=== PATIENT | female | born 1930 | race Caucasian/White ===

== ENCOUNTER → 2018-03-06 | Outpatient (CLI) | payer MEDICARE, OTHER ==
[~2018-03-06] MED LIST: ACE500 PO; ALLO-119 PO; ASPI-1441 PO; CEP500 PO; LOR5/325 PO; MELO-149 PO; MULT1CAP41 PO; NIA500 PO; OLME1TAB PO; OLME1TAB49 PO; PREG50CA48 PO
[2018-03-06 08:05] LABS: PLATELET COUNT, AUTOMATED 214 K/uL (150-450)
== END ==
LOC: LAB 07:46
PROVIDERS: ATTEND Nurse Practitioner Psychiatric/Mental Health
DX: M10.9 Gout, unspecified (principal); I10 Essential (primary) hypertension; E78.5 Hyperlipidemia, unspecified
CPT/HCPCS: 36415; 82040; 82247; 82310; 82374; 82435; 82465; 82565; 82947; 83718; 84075; 84132; 84155; 84295; 84443; 84450; 84460; 84478; 84520; 84550; 85025

== ENCOUNTER 2019-02-25 07:12 | Observation (INO) | payer MEDICARE, OTHER ==
[~2019-02-25] VITALS: Ht 167.6 cm; Wt 82.1 kg
--- NOTE | 2019-02-25 07:39 | ER Report ---
History and Physical Time Seen By MD: 07:20 Hx. of Stated Complaint: patient reports getting out of the shower and blood starting spurting out of the left lower leg. bleeding controlled with pressure dressing. patient does not take blood thinners HPI/ROS CHIEF COMPLAINT: Bleeding HISTORY OF PRESENT ILLNESS: Patient is an 88-year-old female comes emergency Department after getting out of the shower today she was drying herself off and she had ruptured varicosity of her left lower extremity with excessive amounts o f bleeding she is not on blood thinners. Patient does take an aspirin daily. Patient states the bleeding was excessive she noticed that there was some spurting to it under pressure at soaked many towels of the puddle on the floor she call 911 with a patient direct pressure was able to get hemostasis. Patient denies any trauma to the area then she may have bumped it while she was in shower. No additional complaints noted. Patient on arrival here is no chest pain shortness of breath nausea vomiting diarrhea fever or chills REVIEW OF SYSTEMS: Respiratory: No cough, no dyspnea. Cardiovascular: No chest pain, no palpitations. Gastrointestinal: No vomiting, no abdominal pain. Musculoskeletal: No back pain. Remainder of the 14 system rev: Yes Allergies: Coded Allergies: nitrofurantoin (Verified Allergy, Mild, HIVES, 12/09/07) Home Meds Active Scripts Allopurinol (ZYLOPRIM) 300 Mg Tablet, 1 TAB PO BID, #180 TAB 1 Refill Prov:MANUELITO QUICK MD 11/13/17 Reported Medications Olmesartan/Hydrochlorothiazide (Olmesartan-Hctz 20-12.5 mg Tab) 20 Mg-12.5 Mg Tablet, 1 TAB PO DAILY 02/23/18 Meloxicam (MOBIC) 7.5 Mg Tablet, 1 TAB PO BID 06/09/17 Pregabalin (LYRICA) 50 Mg Capsule, 1 CAP PO BID 06/09/17 Multivitamins W-Minerals (Multivitamin) 1 Cap Capsule, 1 CAP PO DAILY 12/09/07 Aspirin (Aspirin Ec) 81 Mg Tablet., 1 TAB PO DAILY 12/09/07 Reviewed Nurses Notes: Yes Old Medical Records Reviewed: Yes Smoking Status: Never Smoker Constitutional Vital Sign - Last 24 Hours 02/25/19 02/25/19 02/25/19 02/25/19 07:15 07:17 07:30 07:42 Temp 98.3 Pulse 73 58 Resp 16 B/P (MAP) 116/79 116/79 (91) 116/73 (87) Pulse Ox 91 88 O2 Delivery Room Air 02/25/19 02/25/19 02/25/19 02/25/19 07:57 08:04 08:12 08:15 Pulse 50 45 Resp 20 B/P (MAP) 85/33 (50) 94/42 (59) Pulse Ox 89 02/25/19 02/25/19 02/25/19 02/25/19 08:17 08:27 08:40 08:45 Pulse 46 44 46 Resp 23 17 18 B/P (MAP) 114/43 (66) Pulse Ox 95 96 97 O2 Flow Rate 2.0 02/25/19 02/25/19 02/25/19 08:50 08:55 09:00 Pulse 45 44 45 Resp 16 18 13 B/P (MAP) 116/51 (72) 124/52 (76) Pulse Ox 98 97 97 Physical Exam General Appearance: [The patient is alert, has no immediate need for airway protection and no current signs of toxicity.] [ ] Eyes: Pupils equal and round no injection. Respiratory: Chest is non tender, lungs are clear to auscultation. Cardiac: regular rate and rhythm [ ] Gastrointestinal: Abdomen is soft and non tender, no masses, bowel sounds normal. Musculoskeletal: Neck: Neck is supple and non tender. Extremities have full range of motion and are non tender. Skin: Left lower extremity examination does show a small punctate area where the actual bleeding was coming from and around a large amount of varicosities. Currently hemostasis has been obtained no active bleeding dry blood is been noted neurovascular intact otherwise unremarkable [ ] DIFFERENTIAL DIAGNOSIS: After history and physical exam differential diagnosis was considered for ruptured vein varicosity acute bleed Medical Decision Making Data Points Result Diagram: 02/25/19 0910 02/25/19 0745 Laboratory Hematology Test 02/25/19 07:45 02/25/19 09:10 Prothrombin Time 13.6 seconds (12.0-14.4) Prothromb Time International Ratio 1.04 Activated Partial Thromboplast Time 32 seconds (23-35) Sodium Level 139 mmol/L (137-145) Potassium Level 4.4 mmol/L (3.5-5.0) Chloride Level 104 mmol/L (98-107) Carbon Dioxide Level 26 mmol/L (22-31) Blood Urea Nitrogen 24 mg/dl (7-18) Creatinine 1.20 mg/dl (0.52-1.04) Glomerular Filtration Rate Calc 42.3 Random Glucose 111 mg/dl (75-110) Calcium Level 9.0 mg/dl (8.4-10.2) Total Bilirubin 0.6 mg/dl (0.2-1.3) Aspartate Amino Transf (AST/SGOT) 63 U/L (0-35) Alanine Aminotransferase (ALT/SGPT) 33 U/L (0-56) Alkaline Phosphatase 59 U/L (0-126) Troponin I < 0.012 ng/ml Total Protein 6.7 g/dl (6.3-8.2) Albumin 4.1 g/dl (3.5-5.0) Red Blood Count 4.26 M/uL (4.17-5.56) Mean Corpuscular Volume 89.1 fL (80.0-96.0) Mean Corpuscular Hemoglobin 29.8 pg (26.0-33.0) Mean Corpuscular Hemoglobin Concent 33.4 g/dL (32.0-36.0) Red Cell Distribution Width 13.3 % (11.5-14.5) Mean Platelet Volume 10.3 fL (7.2-11.1) Neutrophils (%) (Auto) 72.8 % (39.4-72.5) Lymphocytes (%) (Auto) 16.1 % (17.6-49.6) Monocytes (%) (Auto) 7.7 % (4.1-12.4) Eosinophils (%) (Auto) 2.5 % (0.4-6.7) Basophils (%) (Auto) 0.9 % (0.3-1.4) Nucleated RBC Relative Count (auto) 0.0 /100WBC Neutrophils # (Auto) 4.6 K/uL (2.0-7.4) Lymphocytes # (Auto) 1.0 K/uL (1.3-3.6) Monocytes # (Auto) 0.5 K/uL (0.3-1.0) Eosinophils # (Auto) 0.2 K/uL (0.0-0.5) Basophils # (Auto) 0.1 K/uL (0.0-0.1) Nucleated RBC Absolute Count (auto) 0.00 K/uL Chemistry Test 02/25/19 07:45 02/25/19 09:10 Prothrombin Time 13.6 seconds (12.0-14.4) Prothromb Time International Ratio 1.04 Activated Partial Thromboplast Time 32 seconds (23-35) Glomerular Filtration Rate Calc 42.3 Calcium Level 9.0 mg/dl (8.4-10.2) Total Bilirubin 0.6 mg/dl (0.2-1.3) Aspartate Amino Transf (AST/SGOT) 63 U/L (0-35) Alanine Aminotransferase (ALT/SGPT) 33 U/L (0-56) Alkaline Phosphatase 59 U/L (0-126) Troponin I < 0.012 ng/ml Total Protein 6.7 g/dl (6.3-8.2) Albumin 4.1 g/dl (3.5-5.0) White Blood Count 6.3 k/uL (4.5-11.0) Red Blood Count 4.26 M/uL (4.17-5.56) Hemoglobin 12.7 g/dL (12.0-16.0) Hematocrit 38.0 % (34.0-47.0) Mean Corpuscular Volume 89.1 fL (80.0-96.0) Mean Corpuscular Hemoglobin 29.8 pg (26.0-33.0) Mean Corpuscular Hemoglobin Concent 33.4 g/dL (32.0-36.0) Red Cell Distribution Width 13.3 % (11.5-14.5) Platelet Count 208 K/uL (150-450) Mean Platelet Volume 10.3 fL (7.2-11.1) Neutrophils (%) (Auto) 72.8 % (39.4-72.5) Lymphocytes (%) (Auto) 16.1 % (17.6-49.6) Monocytes (%) (Auto) 7.7 % (4.1-12.4) Eosinophils (%) (Auto) 2.5 % (0.4-6.7) Basophils (%) (Auto) 0.9 % (0.3-1.4) Nucleated RBC Relative Count (auto) 0.0 /100WBC Neutrophils # (Auto) 4.6 K/uL (2.0-7.4) Lymphocytes # (Auto) 1.0 K/uL (1.3-3.6) Monocytes # (Auto) 0.5 K/uL (0.3-1.0) Eosinophils # (Auto) 0.2 K/uL (0.0-0.5) Basophils # (Auto) 0.1 K/uL (0.0-0.1) Nucleated RBC Absolute Count (auto) 0.00 K/uL Coagulation Test 02/25/19 07:45 Prothrombin Time 13.6 seconds Prothromb Time International Ratio 1.04 Activated Partial Thromboplast Time 32 seconds ED Course/Re-evaluation ED Course 88-year-old female comes emergency Department today after having a acute blood loss from a intravenous varicocele bleed while in the emergency department she had a witnessed vasovagal type episode blood pressure dropped into the 60s systolic pulse 140s family member at bedside patient had an fluid initiated type and screen for a transfusion if necessary 2 units of O- will be ordered and given due to reported bimodal blood loss and compensatory mechanism secondary to age being what they are we'll go ahead and transfuse immediately 2 units of O- and then we will continue with fluid resuscitation monitoring blood pressures EKG was performed cardiac markers added coags as well Repeat evaluation patient received 0.5 atropine pulses gone in the mid 40s up and low 60s and back down blood pressure stabilized 2 units of O- been ordered and given liter of fluid she's been typed and screened should be admitted today and a telemetry bed for acute blood loss and cardiac response secondary to most likely a prolonged vasovagal episode patient otherwise hemodynamically stable Decision to Disposition Date: Feb 25, 2019 Decision to Disposition Time: 09:42 Depart Departure Latest Vital Signs Vital Signs Date Time Temp Pulse Resp B/P (MAP) Pulse Ox O2 Delivery O2 Flow Rate FiO2 02/25/19 09:00 45 13 124/52 (76) 97 02/25/19 08:17 2.0 02/25/19 07:15 98.3 Room Air Impression: Primary Impression: Acute blood loss anemia Condition: Improved Disposition: Admitted from ER Referrals: KALEN MAZA (PCP) Departure Forms: Medications Reconciliation, Patient Portal Information, ER Transition Record LILY EASLEY MD Feb 25, 2019 07:41
[2019-02-25] MEDS ORDERED: NS(*) 0.9% 1000 ML BAG 1,000 ML IV ONE ×3 (07:55→10:30)
[2019-02-25 08:00] LABS: PLATELET COUNT, AUTOMATED 257 K/uL (150-450)
[2019-02-25 08:07] LABS: INR 1.04
--- NOTE | 2019-02-25 08:08 | EKG ---
FACILITY: [facility] PATIENT NAME: EARL SIM : [id number] MR: [id number] V: [id number] EXAM DATE: ORDERING PHYSICIAN: LILY EASLEY TECHNOLOGIST: KEYONA Robbins Reason : Blood Pressure : / mmHG Vent. Rate : 045 BPM Atrial Rate : 045 BPM P-R Int : 164 ms QRS Dur : 100 ms QT Int : 490 ms P-R-T Axes : 041 -31 022 degrees QTc Int : 423 ms Marked sinus bradycardia Left axis deviation Abnormal ECG No previous ECGs available Confirmed by Kranthi Elmore ([id number]) on 02/25/2019 2:57:58 PM Referred By: KAUSHAL Confirmed By:Kranthi Gonzales
[2019-02-25] MEDS ORDERED: ATROPINE SUL 1 MG/ML VIAL INH ONE (08:55)
[2019-02-25 09:17] LABS: PLATELET COUNT, AUTOMATED 208 K/uL (150-450)
[2019-02-25] MEDS ORDERED: NS(*) 0.9% 500 ML BAG 500 ML IV PRN (09:50)
[2019-02-25] MEDS ORDERED: FLUSH 10 ML SYR IVP PRN (10:30)
[2019-02-25] MEDS ORDERED: ACETAMINOPHEN 325 MG TAB PO PRN (10:30)
[2019-02-25 10:38] VITALS: BP 160/52
[2019-02-25] MEDS ORDERED: ALLO-119 PO (11:01)
--- NOTE | 2019-02-25 14:50 | History & Physical ---
History of Present Illness Chief Complaint bleeding, decreased LOC, hypotension History of Present Illness 88F presented after bleeding from LLE. PMHx significant for chronic pain and neuropathy. Reports when getting out of shower bumped her leg this am and had blood spurting out. She used towels to control but when she saw the amount that was around room called EMS. Several bloody towels found, pressure dressing applied. In ER found to have controlled bleeding, Hgb 12.7 and was transfused 2U PRBC. Had episode of bradycardia in 40's and hypotension with decreased LOC after getting transfusion and 2L NS. Given atropine with some improvement in pulse, LOC returtned to normal though timing is unclear. Admitted for monitoring. Reportedly very active no previous feelings of presyncope or weakness. She is not on any conduction slowing medications. History Problems: (1) Urinary incontinence (2) HTN (hypertension) (3) Osteoarthritis Home Meds Reported Medications Allopurinol (ZYLOPRIM) 300 Mg Tablet, 0.5 TAB PO QDAY, TAB 02/25/19 Olmesartan/Hydrochlorothiazide (Olmesartan-Hctz 20-12.5 mg Tab) 20 Mg-12.5 Mg Tablet, 1 TAB PO DAILY 02/23/18 Meloxicam (MOBIC) 7.5 Mg Tablet, 1 TAB PO BID 06/09/17 Pregabalin (LYRICA) 50 Mg Capsule, 1 CAP PO BID 06/09/17 Multivitamins W-Minerals (Multivitamin) 1 Cap Capsule, 1 CAP PO DAILY 12/09/07 Aspirin (Aspirin Ec) 81 Mg Tablet.dr, 1 TAB PO DAILY 12/09/07 Discontinued Scripts Allopurinol (ZYLOPRIM) 300 Mg Tablet, 1 TAB PO BID, #180 TAB 1 Refill Prov:MANUELITO QUICK MD 11/13/17 Allergies: Coded Allergies: nitrofurantoin (Verified Allergy, Mild, HIVES, 12/09/07) Patient History: FH: pancreatic cancer FATHER, Smoking Status: Never Smoker Social Drug Use: Never Review of Systems Neurological: Confusion (resolved); No Slurred Speech Respiratory: No Shortness of Breath Gastrointestinal: No Nausea, No Vomiting Exam Vital Signs Vital Signs Date Time Temp Pulse Resp B/P (MAP) Pulse Ox O2 Delivery O2 Flow Rate FiO2 02/25/19 11:09 45 02/25/19 11:06 90 02/25/19 11:06 Room Air 02/25/19 10:38 97.7 14 160/52 (88) 2.0 General Appearance: Alert, Awake, No Acute Distress Neuro: No Gross deficits ENT: Normal Cardiovascular: Normal Rhythm & Peripheral Pulses Respiratory: No Respiratory Distress GI: Abd Soft and Non-Tender Musculoskeletal: No Weakness/Pain Extremities: Soft and Non Tender, Warm, Pulses, Perfused Integumentary: Other (LLE with dry dressing, no evidence further bleeding.) Medical Decision Making Data Points Result Diagram: 02/25/19 1103 02/25/19 0745 EKG / Imaging EKG Interpretation sinus bradycardia Monitor Interpretation: Sinus Bradycardia Assessment and Plan Problems: (1) Bradycardia Assessment & Plan: Appears chronic, no previous symptoms, BP does go up into 50's when up and ambulating. BP is high after IV fluids. Will observe on telemetry, no further IV fluids. If symptomatic or telemetry reveals issues will pursue further work up. (2) Acute bleeding Assessment & Plan: Controlled, monitor for bleeding. Hgb >14 after 2U PRBC in ER. (3) Hypotension Assessment & Plan: Likely vasovagal vs symptomatic bradycardia. Pulse again in 40's but patient asymptomatic. Suspect vasovagal response to blood loss. (4) HTN (hypertension) Assessment & Plan: Per patient not on treatment any longer, currently running high after IV fluids and PRBC. Monitor. Venous Thromboembolism Antithrombotics Is Pt On Any Antithrombotics?: No Prophylaxis Tx Contraindicated Pharmacological Contraindicati: Active Bleeding Exam Sepsis Risk: No Definite Risk DUARTE PEYMAN GONZALES DO Feb 25, 2019 14:50
[2019-02-25 15:03] VITALS: BP 148/68
[2019-02-25 19:15] VITALS: BP 159/54
[2019-02-26 03:26] VITALS: BP 179/64
[2019-02-26 07:08] VITALS: BP 155/58
[2019-02-26 09:01] VITALS: Ht 167.6 cm; Wt 82.1 kg
[2019-02-26] MEDS ORDERED: MELO-149 PO (09:44)
--- NOTE | 2019-02-26 09:57 | Hospitalist Depart ---
Discharge Summary Reason for Hosp/Final Diag: (1) Bradycardia Status: Chronic Hospital Course & Plan: In reviewing her chart this appears chronic and present for many years. We did observe on telemetry and she has HR generally in 50-70 range with occasional episodes in mid 40s. She has been asymptomatic during this stay and prior to admission. She is not currently on medications which would cause bradycardia. She tolerates activities without problems. I do not believe she will need any specific treatment at this time. She will follow up with her primary care provider regarding this to discuss whether or not she would need any further evaluation or treatment. (2) Acute bleeding Hospital Course & Plan: Due to apparent small abrasion on left anterior tibial area. I suspect this may have been related to a venous varicosity located in this area. This was controlled by dressing applied by EMS/ER. Her counts remained stable. She will hold her aspirin therapy (81mg daily) until she discusses with her primary care provider. (3) HTN (hypertension) Hospital Course & Plan: Per patient, she is not on treatment any longer (olme sartan/HCTZ). Her BPs were moderately elevated during her stay. She did have some mild hypotension noted while in the ER felt to be secondary to some blood loss or vasovagal reaction. She did not have any ongoing or recurrent low BPs during her admission. No medications were started/resumed at this time. Departure Weight (Pounds): 181 Result Diagram: 02/25/19 1103 02/25/19 0745 Item Value Date Time White Blood Count 4.8 k/uL 02/25/19 0745 Hemoglobin 14.2 g/dL 02/25/19 0745 Hematocrit 42.0 % 02/25/19 0745 Platelet Count 257 K/uL 02/25/19 0745 Platelet Count 208 K/uL 02/25/19 0910 Hematocrit 38.0 % 02/25/19 0910 Hemoglobin 12.7 g/dL 02/25/19 0910 White Blood Count 6.3 k/uL 02/25/19 0910 Hematocrit 44.6 % 02/25/19 1103 Hemoglobin 14.6 g/dL 02/25/19 1103 Prothrombin Time 13.6 seconds 02/25/19 0745 Prothromb Time International Ratio 1.04 02/25/19 07 Activated Partial Thromboplast Time 32 seconds 02/25/19 0745 Sodium Level 139 mmol/L 02/25/19 0745 Potassium Level 4.4 mmol/L 02/25/19 0745 Chloride Level 104 mmol/L 02/25/19 0745 Carbon Dioxide Level 26 mmol/L 02/25/19 0745 Blood Urea Nitrogen 24 mg/dl H 02/25/19 0745 Creatinine 1.20 mg/dl H 02/25/19 0745 Glomerular Filtration Rate Calc 42.3 02/25/19 0745 Random Glucose 111 mg/dl H 02/25/19 0745 Calcium Level 9.0 mg/dl 02/25/19 0745 Total Bilirubin 0.6 mg/dl 02/25/19 0745 Aspartate Amino Transf (AST/SGOT) 63 U/L H 02/25/19 0745 Alanine Aminotransferase (ALT/SGPT) 33 U/L 02/25/19 0745 Alkaline Phosphatase 59 U/L 02/25/19 0745 Troponin I < 0.012 ng/ml 02/25/19 0745 Total Protein 6.7 g/dl 02/25/19 0745 Albumin 4.1 g/dl 02/25/19 0745 EKG PATIENT NAME: EARL SIM : [id number] MR: [id number] V: [id number] EXAM DATE: ORDERING PHYSICIAN: LILY EASLEY TECHNOLOGIST: KEYONA Robbins Reason : Blood Pressure : / mmHG Vent. Rate : 045 BPM Atrial Rate : 045 BPM P-R Int : 164 ms QRS Dur : 100 ms QT Int : 490 ms P-R-T Axes : 041 -31 022 degrees QTc Int : 423 ms Marked sinus bradycardia Left axis deviation Abnormal ECG No previous ECGs available Confirmed by Kranthi Elmore ([id number]) on 02/25/2019 2:57:58 PM Referred By: KAUSHAL Confirmed By:Kranthi Gonzales Condition: Improved Discharge: Home Time Spent: > 30 min Discharge Instructions Home Meds Active Scripts Meloxicam (MOBIC) 7.5 Mg Tablet, 1 TAB PO BID for 30 Days, TAB Hold until discuss with Primary Care Provider. Prov:QASIM ABBOTT MD 02/26/19 Reported Medications Allopurinol (ZYLOPRIM) 300 Mg Tablet, 0.5 TAB PO QDAY, TAB 02/25/19 Pregabalin (LYRICA) 50 Mg Capsule, 1 CAP PO BID 06/09/17 Multivitamins W-Minerals (Multivitamin) 1 Cap Capsule, 1 CAP PO DAILY 12/09/07 Aspirin (Aspirin Ec) 81 Mg Tablet.dr, 1 TAB PO DAILY for 30 Days, TAB Do Not Take until discuss with primary care provider. 12/09/07 Discontinued Reported Medications Olmesartan/Hydrochlorothiazide (Olmesartan-Hctz 20-12.5 mg Tab) 20 Mg-12.5 Mg Tablet, 1 TAB PO DAILY 02/23/18 Discontinued Scripts Allopurinol (ZYLOPRIM) 300 Mg Tablet, 1 TAB PO BID, #180 TAB 1 Refill Prov:MANUELITO QUICK MD 11/13/17 Follow up Referrals: Family Practice with KALEN MAZA Internal Medicine @ [facility]-Primary with SANDRA MAHARAJ MD Diet: Regular Activity: As Tolerated Special Instructions: Follow up with Dr. Maharaj or Kalen MCDONALD in next 7-10 days or sooner if any problems. Copies to: SANDRA MAHARAJ MD; KALEN MAZA ; Venous Thromboembolism Antithrombotics Is Pt On Any Antithrombotics?: No QASIM ABBOTT MD Feb 26, 2019 09:57
== END 2019-02-26 09:44 | disposition home or self-care (01) ==
LOC: ER 07:57 → INTOOBSV 09:57 → UNDOADMOB 09:57 → MED 09:57 → UNDODISOB 02-26 10:55
PROVIDERS: ADMIT Internal Medicine; ATTEND Internal Medicine
DX: D62 Acute posthemorrhagic anemia (principal); I10 Essential (primary) hypertension; I95.9 Hypotension, unspecified; R00.1 Bradycardia, unspecified
CPT/HCPCS: 36415; 36430; 84484; 85014; 85018; 85025; 85610; 85730; 86850; 86900; 86901; 86920; 93005; 96360; 96361; 99284; G0378; J0461; J7030; P9016; 82040; 82247; 82310; 82374; 82435; 82565; 82947; 84075; 84132; 84155; 84295; 84450; 84460; 84520

== ENCOUNTER → 2019-04-20 | Outpatient (CLI) | payer MEDICARE, OTHER ==
[2019-02-26 09:01] VITALS: BMI 29.2
[2019-04-20 16:39] LABS: PLATELET COUNT, AUTOMATED 277 K/uL (150-450)
== END ==
LOC: LAB 15:52
PROVIDERS: ATTEND Family Medicine
DX: M10.9 Gout, unspecified (principal); I10 Essential (primary) hypertension
CPT/HCPCS: 36415; 82310; 82374; 82435; 82565; 82947; 84132; 84295; 84520; 84550; 85025